=== PATIENT | male | born 1980 | race Caucasian/White ===

== ENCOUNTER 2023-04-23 10:37 | Emergency (ER) | payer OTHER ==
[~2023-04-23] VITALS: Ht 170.2 cm; Wt 71.3 kg
[2023-04-23] MEDS ORDERED: ketorolac trometh inj. 60 MG/2 ML VIAL IM ONE (11:45)
[2023-04-23] MEDS ORDERED: NAPR-56 PO (11:48)
[2023-04-23 12:28] VITALS: BP 110/62; PULSE 94; RESP 16; TEMP 98.8; O2SAT 98
--- NOTE | 2023-04-23 14:44 | NUR ---
I AGREE WITH THE ASSESSMENT PER Lis SALDIVAR LVN
== END 2023-04-23 12:30 | disposition home or self-care (01) ==
LOC: ER 10:37
DX: S63.8X1A Sprain of other part of right wrist and hand, initial encounter (principal); X58.XXXA Exposure to other specified factors, initial encounter; Y93.89 Activity, other specified; Y92.89 Other specified places as the place of occurrence of the external cause; Y99.8 Other external cause status
CPT/HCPCS: 73130; 96372; 99283; J1885